=== PATIENT | female | born 1960 | race Caucasian/White ===

== ENCOUNTER 2016-06-03 14:20 | Emergency (ER) | payer BC ==
[2016-06-03 15:06] LABS: BASOPHILS 0.3 % (0.0-2.0); EOSINOPHILS 1.8 % (0-7); HEMATOCRIT 43.3 % (36.0-48.0); IMMATURE GRANULOCYTES 0.2 % (0-5); LYMPHOCYTES 26.9 % (15-50); MCH 28.9 pg (26.0-34.0); MCHC 32.3 g/dL (31.0-37.0); MCV 89.5 fL (80.0-100.0); MEAN PLATELET VOLUME 9.6 fL (7.4-10.4); MONOCYTES 7.3 % (2-11); NEUTROPHILS 63.5 % (40-80); PLATELET COUNT 196 10x3/uL (130-400); RBC 4.84 10x6/uL (4.00-5.40); RDW 13.5 % (11.5-14.5); WBC 6.2 10x3/uL (4.8-10.8)
[2016-06-03 15:21] LABS: ALBUMIN 4.4 g/dL (3.4-5.0); ANION GAP 11.9 mmol/L (8-16); BILIRUBIN - TOTAL 0.33 mg/dL (0.2-1.3); CALCIUM 9.7 mg/dL (8.5-10.1); CARBON DIOXIDE 28.8 mmol/L (21.0-32.0); CREATININE - SERUM 0.9 mg/dL (0.6-1.3); POTASSIUM - SERUM 3.7 mmol/L (3.5-5.1); PROTEIN - SERUM 7.7 g/dL (6.4-8.2)
[2016-06-03 15:48] LABS: APPEARANCE CLEAR (CLEAR); BILIRUBIN NEGATIVE (NEGATIVE); COLOR YELLOW (YELLOW); GLUCOSE NEGATIVE (NEGATIVE); KETONE NEGATIVE (NEGATIVE); LEUKOCYTE ESTERASE NEGATIVE (NEGATIVE); NITRITE NEGATIVE (NEGATIVE); PROTEIN NEGATIVE (NEGATIVE); UROBILINOGEN NORMAL (NORMAL)
== END 2016-06-03 18:35 | disposition home or self-care (01) ==
LOC: D.ER 14:20
PROVIDERS: Family Medicine
DX: K29.00 Acute gastritis without bleeding (principal); R10.9 Unspecified abdominal pain; K58.9 Irritable bowel syndrome, unspecified

== ENCOUNTER → 2017-03-01 11:15 | Outpatient (CLI) | payer BC | END | disposition home or self-care (01) | LOC: D.MRI 11:15 | DX: M75.41 Impingement syndrome of right shoulder (principal) ==

== ENCOUNTER 2017-08-22 08:00 | Outpatient (CLI) | payer BC | END 2017-08-22 14:14 | disposition home or self-care (01) | LOC: D.MAMMO 08:00 | DX: Z12.31 Encounter for screening mammogram for malignant neoplasm of breast (principal) ==

== ENCOUNTER → 2017-12-19 16:52 | Outpatient (CLI) | payer BC | END | disposition home or self-care (01) | LOC: D.MAMMO 09:30 | DX: R92.8 Other abnormal and inconclusive findings on diagnostic imaging of breast (principal) ==

== ENCOUNTER 2018-02-13 07:51 | Day surgery (SDC) | payer BC ==
[~2018-02-13] VITALS: Ht 167.6 cm; Wt 86.2 kg
--- NOTE | ~2018-02-13 | OP ---
PATIENT NAME: JEN SIFUENTES MEDICAL RECORD: [id number] :56 LOCATION:[facility] ADMISSION DATE: SURGEON: NADEEM BAZAN MD DATE OF OPERATION: 02/13/2018 SURGEON: Nadeem Bazan MD ANESTHESIA: General anesthesia by Ronda Zamudio CRNA DIAGNOSIS: Urge urinary incontinence, interstitial cystitis. PROCEDURES: Cystoscopy, intravesical Botox injection 100 units, examination under anesthesia. FINDINGS: Single ureteral orifices. No bladder tumors. Diffusely inflamed bladder with glomerulations. Moderate bladder trabeculation. No signs of mesh graft erosion into the bladder or the urethra. On examination under anesthesia, no signs of vaginal mesh extrusion. BLOOD LOSS: None. SPECIMENS: None. CLINICAL HISTORY: This is a 57-year-old female, G2, P2, A0, who was referred for urge urinary incontinence. She has tried Toviaz and Myrbetriq without any benefit in controlling her incontinence. She is status post hysterectomy with a cystocele repair and pubovaginal sling using mesh in [place], [place] in 2009. She continues to have a suprapubic and pelvic pain along with dyspareunia. Due to the dyspareunia, she is now from her . Today, she comes for a cystoscopy and intravesical Botox injection. At the same time, I will examine her to check for vaginal mesh erosion. When I examined her in the office, she had extreme tenderness in the anterior vaginal wall in the region of the mesh. SHE IS ALLERGIC TO CLINDAMYCIN. 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 DESCRIPTION OF PROCEDURE: The patient was given general anesthetic. She was then placed into dorsal lithotomy position, prepped and draped. A 21-Bhutanese cystoscope was placed into the bladder. The findings are as outlined above. No mesh graft erosion was seen. We then injected at 10 different locations 1 mL of Botox solution. Each mL had 10 units of Botox dissolved in it. This gave a total of 100 units dose. Once this was done, the bladder was emptied through the cystoscope sheath. The cystoscope was then turned into the vagina for vaginoscopy. The anterior vaginal wall was completely intact with no signs of mesh graft extrusion. Similarly on bimanual palpation, I cannot feel any areas of raw mesh. I suspect that all of her symptoms are due to interstitial cystitis. I will see her in followup in 1 months' time. TRANSINT:[id number] Voice Confirmation ID: [id number] DOCUMENT ID: [id number] OPERATIVE REPORT [id number] JEN SIFUENTES ROBERT S MD at 1254 CC: [id number] DICTATION DATE: 02/13/181215 [facility] OFFICER: 02/13/18 [id number] [place] [address]
[~2018-02-13 07:51] MED LIST: IMITREX100 MG PO; MOBIC7.5 MG PO; MYRBETRIQ50 MG PO; PROTONIX40 MG PO; ZOLOFT100 MG PO
[2018-02-13 08:17] LABS: HEMATOCRIT 38.4 % (36.0-48.0); HEMOGLOBIN 12.5 g/dL (12-16); MCH 28.7 pg (26.0-34.0); MCHC 32.6 g/dL (31.0-37.0); MCV 88.3 fL (80.0-100.0); MEAN PLATELET VOLUME 9.3 fL (7.4-10.4); RBC 4.35 10x6/uL (4.00-5.40); RDW 13.5 % (11.5-14.5); WBC 5.2 10x3/uL (4.8-10.8)
[2018-02-13 08:58] VITALS: BP 122/64; Ht 167.6 cm; Wt 86.2 kg
== END 2018-02-13 14:20 | disposition home or self-care (01) ==
LOC: D.OPS 07:51 → D.PAN 08:45 → D.OPS 09:45 → D.PAN 09:55 → D.OPS 10:00 → D.PAN 10:00 → D.OPS 14:20
PROVIDERS: Anesthesiology
DX: N39.41 Urge incontinence (principal); N30.10 Interstitial cystitis (chronic) without hematuria; Z01.812 Encounter for preprocedural laboratory examination